=== PATIENT | female | born 1955 | race Caucasian/White ===

== ENCOUNTER 2024-10-29 05:58 | Day surgery (SDC) | payer OTHER ==
[2024-10-23 11:07] VITALS: BP 132/89
[2024-10-23 11:43] LABS: PH,URINE 5.5 (5.0-8.0); URINE APPEARANCE Clear; URINE BILIRRUBIN Negative (NEGATIVE); URINE BLOOD Small; URINE COLOR Yellow; URINE GLUCOSE Negative (NEGATIVE); URINE KETONE Negative (NEGATIVE); URINE LEUKOCYTE Moderate; URINE NITRATE Negative; URINE PROTEIN Trace (NEGATIVE); URINE UROBILINOGEN 0.2 E.U./dl
[2024-10-23 11:46] LABS: URINE BACTERIA 161.5 uL (0.0-1933); URINE RBC 9.5 uL (0.0-20.8); URINE WBC 50.6 uL (0.0-23.2)
[2024-10-23 11:48] LABS: URINE CAST 0.44 uL (0.0-1.40)
[2024-10-23 11:51] LABS: BASO % 0.3 % (0.1-1.2); EOS # 0.11 (0.04-0.54); EOS % 1.7 % (0.7-7.0); HEMATOCRIT 39.9 % (34.1-44.9); HEMOGLOBIN 13.6 g/dL (11.2-15.7); LYMPH % 25.6 % (19.3-53.1); MEAN CORPUSCULAR HEMOGLOBIN 32.3 pg (25.6-32.2); MONO # 0.74 (0.24-0.82); MONO % 11.1 % (4.7-12.5); NEUT # 4.06 (1.56-6.13); PLATELET COUNT 229 K/uL (163-369); RED BLOOD COUNT 4.21 M/uL (3.93-5.22); RED CELL DISTRIBUTION WIDTH 12.2 % (11.6-14.4)
[2024-10-23 12:16] LABS: INR 0.98; PARTIAL THROMBOPLASTIN TIME 27.1 SECONDS (22.0-34.0); PROTHROMBIN TIME 10.7 SECONDS (9.0-11.5)
[2024-10-23 12:28] LABS: ALBUMIN 3.9 gm/dL (3.4-5.0); BILIRUBIN TOTAL 0.45 mg/dL (0.3-1.2); CALCIUM 9.1 mg/dL (8.5-10.1); CREATININE SERUM 0.62 mg/dL (0.55-1.02); GFR 96.01; GLOBULINA 3.7 G/DL (2.4-3.5); POTASSIUM 3.92 mEq/L (3.5-5.1); TOTAL PROTEIN 7.6 gm/dL (6.4-8.2)
[~2024-10-29] VITALS: Ht 152.4 cm; Wt 68.0 kg
[~2024-10-29 05:58] MED LIST: ACIDOPHILUS1 CAP; HUMIRA20 MG/0.4; OMNIPRED10 ML; ORTHO DF 3,7751 EACH PO; RINVOQ30 MG; TRAMADOL HCL25 GM
[2024-10-29] MEDS ORDERED: CEFAZOLIN SODIUM 1,000 MG VIAL ONE (07:18)
[2024-10-29] MEDS ORDERED: BUPIVACAINE HCL/MPF 0.5% 30ML VIAL ONE (08:47)
[2024-10-29] MEDS ORDERED: LIDOCAINE HCL 1%/EPINEPHRINE 20ML VIAL IJ ONE (08:47)
[2024-10-29] MEDS ORDERED: BUPIVACAINE HCL 30 ML VIAL IJ ONE (10:00)
[2024-10-29] MEDS ORDERED: CEFAZOLIN SODIUM 1,000 MG VIAL IV ONE (10:00)
[2024-10-29] MEDS ORDERED: SUGAMMADEX SODIUM 200 MG/2 ML VIAL IV ONE (10:55)
[2024-10-29] MEDS ORDERED: MORPHINE SULFATE 2 MG/ML CARTRIDGE IV ONE ×2 (11:40→14:15)
== END 2024-10-29 15:20 | disposition home or self-care (01) ==
LOC: CIR.AMB 05:58
PROVIDERS: ATTEND Orthopaedic Surgery Hand Surgery
DX: M19.041 Primary osteoarthritis, right hand (principal); M05.79 Rheumatoid arthritis with rheumatoid factor of multiple sites without organ or systems involvement